=== PATIENT | male | born 1945 | race Caucasian/White ===

== ENCOUNTER 2020-02-09 10:11 | Outpatient (CLI) | payer MEDICARE, MEDICAID, SELFPAY ==
--- NOTE | ~2020-02-09 | XR_ITS ---
XR barium swallow DATE: 02/09/2020 10:53 INDICATION: Dysphagia TECHNIQUE: Fluoroscopy and rapid sequence spot images of the esophagus during swallowing 0.3 minutes fluoroscopy time 16.14 DAP COMPARISON: None FINDINGS: Normal deglutition and esophageal peristalsis. No stricture, obstruction, intraluminal fill ing defect, diverticulum or ulceration of the esophagus is evident. IMPRESSION: No significant abnormality Reviewed, dictated and finalized at [facility]. Reviewed, dictated and finalized at location A. IMPRESSION: No significant abnormality
== END 2020-02-09 10:12 | disposition home or self-care (01) ==
PROVIDERS: PCP Family Medicine; Visit Provider Otolaryngology
DX: R13.10 Dysphagia, unspecified (principal)
CPT/HCPCS: 74220

== ENCOUNTER 2021-11-14 15:05 | Outpatient (CLI) | payer MEDICARE, MEDICAID, SELFPAY ==
--- NOTE | ~2021-11-14 | XR_ITS ---
XR chest 2V 11/14/2021 15:23 Indication: Chronic cough and shortness of breath Procedure: 2 view chest Comparison: 05/09/2019 Findings: There is evidence for chronic granulomatous disease. Heart size normal. There are interstit ial infiltrates in the right mid and lower lung which may represent mild edema or atypical or signifi cant effusion or pneumothorax. Impression: 1: Asymmetric interstitial infiltrates of the right mid and lower lung which may represent interstiti al edema or atypical pneumonia. Reviewed, dictated and finalized at location B. EAR SCIENTIST Impression: 1: Asymmetric interstitial infiltrates of the right mid and lower lung which ma y represent interstitial edema or atypical pneumonia.
== END 2021-11-14 15:06 | disposition home or self-care (01) ==
LOC: ANHIMG 15:09
PROVIDERS: PCP Family Medicine; Visit Provider Family Medicine
DX: R05.3 Chronic cough (principal); R91.8 Other nonspecific abnormal finding of lung field
CPT/HCPCS: 71046

== ENCOUNTER 2021-11-28 13:37 | Outpatient (CLI) | payer MEDICARE, MEDICAID, SELFPAY ==
--- NOTE | ~2021-11-28 | CT_ITS ---
EXAMINATION: CT diagnostic chest wo con DATE: 11/28/2021 14:00 INDICATION: Pneumonia, unspecified organism, history of prostate cancer and melanoma TECHNIQUE: Computed tomography (CT) of the chest was performed without intravenous contrast. The dose -length product (DLP) was 641.31 mGy-cm. Automated exposure control and iterative reconstruction tech inTarvo were employed. COMPARISON: 09/06/2013 FINDINGS: There is dependent atelectasis. No focal airspace opacities are identified. There is no ple ural effusion or pneumothorax. Calcified pulmonary nodules and calcified bilateral hilar and mediasti nal lymph nodes are consistent with old granulomatous disease. No pathologically enlarged thoracic ly mph nodes are identified. The heart size is normal. Calcified coronary artery atherosclerosis is note d. Punctate calcifications in an otherwise normal spleen likely represent healed granulomatous diseas e. There is a partially imaged 1.4 cm cyst of the right kidney. There are bridging osteophytes at mul tiple levels in the spine, consistent with diffuse idiopathic skeletal hyperostosis (DISH). IMPRESSION: 1. No CT correlate for the patient's symptoms. Reviewed, dictated and finalized at location B. MIC PAINTER
== END 2021-11-28 13:38 | disposition home or self-care (01) ==
LOC: ANHIMG 13:39
PROVIDERS: PCP Family Medicine; Visit Provider Nurse Practitioner Family
DX: J18.9 Pneumonia, unspecified organism (principal); R05.3 Chronic cough; I25.10 Atherosclerotic heart disease of native coronary artery without angina pectoris; N28.1 Cyst of kidney, acquired
CPT/HCPCS: 71250

== ENCOUNTER 2022-10-18 15:04 | Outpatient (CLI) | payer MEDICARE, MEDICAID, SELFPAY ==
--- NOTE | ~2022-10-18 | XR_ITS ---
EXAMINATION: XR finger 3rd RT min 2V DATE: 10/18/2022 15:54 INDICATION: Mallet fracture of the distal phalanx of the right middle finger TECHNIQUE: Dorsal palmar, lateral and oblique views of the right third digit were obtained COMPARISON: Right hand radiographs dated 09/20/2010 FINDINGS: Old healed fracture deformity at the neck of the right fifth metacarpal. Chronic ulnar angulation at the third proximal interphalangeal joint. Mild finger deformity at the third distal interphalangeal j oint with dorsal osteophyte at the base of the distal phalanx and small heterotopic ossicle at the do rsal aspect of the joint space likely sequela of chronic trauma. No acute fracture. Small enthesopath ic ossicles at the second metacarpal origin of the radial collateral ligament complex. Polyarticular osteoarthritis, moderate severity at the third proximal interphalangeal joint and mild at the remaini ng metacarpophalangeal and interphalangeal joints. IMPRESSION: 1. Minimal finger deformity at the right third distal interphalangeal joint with dorsal osteophyte an d small dorsal heterotopic ossicle suggesting sequela of old trauma. 2. Additional old healed boxer's fracture deformity at the neck of the fifth metacarpal. 3. 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 Reviewed, dictated and finalized at location B. UCTION CONTROL SPECIALIST IMPRESSION: 1. Minimal finger deformity at the right third distal interphalangeal joint wit h dorsal osteophyte and small dorsal heterotopic ossicle suggesting sequela of old trauma. 2. Additional old healed boxer's fracture deformity at the neck of the fifth me tacarpal. 3. 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
== END 2022-10-18 15:05 | disposition home or self-care (01) ==
PROVIDERS: PCP Family Medicine; Visit Provider Plastic Surgery
DX: S62.632A Displaced fracture of distal phalanx of right middle finger, initial encounter for closed fracture (principal); X58.XXXA Exposure to other specified factors, initial encounter; M19.041 Primary osteoarthritis, right hand
CPT/HCPCS: 73140

== ENCOUNTER 2023-11-26 15:59 | Outpatient (CLI) | payer MEDICARE, MEDICAID, SELFPAY ==
[2023-11-26 21:03] LABS: Alanine Aminotransferase 36 U/L (6-50); Albumin Level 4.4 g/dL (3.5-5.1); Alkaline Phosphatase 102 U/L (38-126); Anion Gap 6 mmol/L (8-16); Aspartate Amino Transferase 69 U/L (17-59); Bilirubin,Total 0.8 mg/dL (0.2-1.3); Blood Urea Nitrogen 26 mg/dL (9-20); Calcium 9.7 mg/dL (8.4-10.2); Carbon Dioxide 26 mmol/L (22-30); Chloride 107 mmol/L (98-107); Estimated Glomerular Filt Rate 45; Glucose 94 mg/dL (65-110); Sodium 139 mmol/L (137-145)
[2023-11-26 21:07] LABS: Potassium 4.3 mmol/L (3.4-5.0)
== END 2023-11-26 16:00 | disposition home or self-care (01) ==
LOC: ANHGOSHLAB 16:01
PROVIDERS: PCP Family Medicine; Visit Provider Family Medicine
DX: I10 Essential (primary) hypertension (principal)
CPT/HCPCS: 36415; 80053

== ENCOUNTER 2024-03-06 10:37 | Outpatient (CLI) | payer MEDICARE, MEDICAID, SELFPAY ==
--- NOTE | ~2024-03-06 | XR_ITS ---
XR hip LT min 2V Ordering provider: SUKHDEEP Underwood History: . PHYISCAL THERAPY WANTS XR FOR EVALUATION . Comparison: None. FINDINGS: BONES: No acute fracture or dislocation. HIP JOINT SPACES: Narrowing of the medial compartment of the left hip. SACROILIAC JOINT SPACES/LUMBAR SPINE: The sacroiliac joint spaces are normal. Mild degenerative thompson es of the visualized lower lumbar spine. PUBIC SYMPHYSIS: Normal. SOFT TISSUES: Normal. Vascular calcification. IMPRESSION: No acute osseous abnormality pelvis and left hip. Mild osteoarthritic changes of the left hip. Reviewed, dictated and finalized at location A.
--- NOTE | ~2024-03-06 | XR_ITS ---
XR hip RT min 2V Ordering provider: SUKHDEEP Underwood History: . M25.559 - Pain in unspecified hip PT WANTS XR FOR EVALUATION . Comparison: None. FINDINGS: BONES: No acute fracture or dislocation. HIP JOINT SPACES: Normal. SACROILIAC JOINT SPACES/LUMBAR SPINE: The sacroiliac joint spaces shows osteoarthritic changes. Mild degenerative changes of the visualized lower lumbar spine. PUBIC SYMPHYSIS: Normal. SOFT TISSUES: Normal. IMPRESSION: No acute osseous abnormality visualized pelvis and right hip. Reviewed, dictated and finalized at location A.
== END 2024-03-06 10:38 | disposition home or self-care (01) ==
LOC: ANHIMG 10:38
PROVIDERS: PCP Family Medicine; Visit Provider Clinical Nurse Specialist
DX: M16.12 Unilateral primary osteoarthritis, left hip (principal); M25.559 Pain in unspecified hip
CPT/HCPCS: 73502

== ENCOUNTER 2024-05-28 12:55 | Outpatient (CLI) | payer MEDICARE, MEDICAID, SELFPAY ==
--- NOTE | ~2024-05-28 | MR_ITS ---
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 TECHNIQUE: Magnetic resonance imaging (MRI) of the lumbar spine was performed without intravenous con trast. Sequences included sagittal T2-weighted FSE, sagittal T2-weighted FS FSE, sagittal T1-weighted FSE, and axial T2-weighted FSE. COMPARISON: Lumbar spine MRI 09/10/17 FINDINGS: There is 12 degrees dextroscoliosis of lumbar spine. There is 3 mm retrolisthesis of L1 on L2 and L2 on L3 and 4 mm retrolisthesis of L3 on L4. There is mild chronic anterior wedging of T12 an d L1 vertebral bodies. There is severely decreased disc height from T12-L1 through L5-S1. The distal spinal cord signal intensity is normal. The conus medullaris is at T12-L1. The following disc levels are specifically discussed: L1-L2: The disc is bulging and has an annular fissure. There is severe bilateral facet joint osteoart hritis. There is mild bilateral neural foraminal stenosis. There is mild central canal stenosis. L2-L3: The disc is bulging and has an annular fissure. There is severe right and moderate left facet joint osteoarthritis. There is mild bilateral neural foraminal stenosis. There is mild central canal stenosis. L3-L4: The disc is bulging and has an annular fissure. There is moderate bilateral facet joint osteoa rthritis. There is moderate right and mild left neural foraminal stenosis. There is mild central vidya l stenosis. L4-L5: The disc is bulging and has an annular fissure. There is severe bilateral facet joint osteoart hritis. There is mild bilateral neural foraminal stenosis. There is moderate central canal stenosis. L5-S1: The disc is bulging and has an annular fissure. There is severe bilateral facet joint osteoart hritis. There is mild bilateral neural foraminal stenosis. There is mild central canal stenosis. IMPRESSION: 1. Severe lumbar spondylosis, worsened from 09/10/17 2. Lumbar dextroscoliosis. Reviewed, dictated and finalized at location A.
== END 2024-05-28 12:56 | disposition home or self-care (01) ==
PROVIDERS: PCP Family Medicine; Visit Provider Family Medicine
DX: M47.816 Spondylosis without myelopathy or radiculopathy, lumbar region (principal)
CPT/HCPCS: 72148

== ENCOUNTER 2024-07-05 12:33 | Outpatient (CLI) | payer MEDICARE, MEDICAID, SELFPAY ==
--- NOTE | ~2024-07-05 | XR_ITS ---
XR chest 2V Ordering provider: Ariel Morgan MD History: 79 years Male with . C34.91 - Malignant neoplasm of unspecified part of right ... . Comparison: November 14, 2021 FINDINGS: MEDIASTINUM: The cardiac silhouette is not enlarged. Congestive ashley. LUNGS: No effusions or pneumothorax. Opacification in the right lung base. OTHER: No free air under the diaphragm. Degenerative changes of the spine. IMPRESSION: Opacification in the right lung base which may indicate atelectasis versus pneumonia. Follow-up advis ed. If clinically warranted CT is advised. Reviewed, dictated and finalized at location A. IMPRESSION: Opacification in the right lung base which may indicate atelectasis versus pneu monia. Follow-up advised. If clinically warranted CT is advised.
== END 2024-07-05 12:34 | disposition home or self-care (01) ==
PROVIDERS: PCP Family Medicine; Visit Provider Family Medicine
DX: C34.91 Malignant neoplasm of unspecified part of right bronchus or lung (principal)
CPT/HCPCS: 71046